=== PATIENT | male | born 1970 | race Caucasian/White ===

== ENCOUNTER 2017-10-26 07:01 | Day surgery (SDC) | payer OTHER ==
[2017-10-17 10:30] VITALS: BMI 26.8
[2017-10-26] MEDS ORDERED: BUPIVACAINE HCL/PF 2.5 MG/ML - 30 ML VIAL IJ ONE (08:08)
[2017-10-26] MEDS ORDERED: EPINEPHrine 1:1,000 1 MG/1 ML - 30ML VIAL (INJECTION) ONE (08:08)
[2017-10-26] MEDS ORDERED: MIDAZOLAM HCL 2 MG/2 ML SINGLE DOSE VIAL ONE (09:01)
[2017-10-26] MEDS ORDERED: PROPOFOL 20 ML ONE ×2 (09:06)
[2017-10-26] MEDS ORDERED: LIDOCAINE HCL/PF 2% SDV 5ML VIAL ONE (09:06)
[2017-10-26] MEDS ORDERED: SUCCINYLCHOLINE CHLORIDE 200 MG/10 ML VIAL ONE (09:08)
[2017-10-26] MEDS ORDERED: BUPIVACAINE HCL/PF 0.25% (2.5MG/ML) 10 ML VIAL IJ ONE (09:49)
[2017-10-26] MEDS ORDERED: oxyCODONE HCL 5 MG TABLET PO PRN (10:11)
[2017-10-26] MEDS ORDERED: PROMETHAZINE HCL 25 MG/1 ML VIAL IVPUSH PRN (10:11)
[2017-10-26] MEDS ORDERED: ONDANSETRON 4 MG/2 ML VIAL IVPUSH PRN (10:11)
[2017-10-26] MEDS ORDERED: LACTATED RINGERS SOLUTION 1,000 ML IV SCH (10:15)
--- NOTE | 2017-10-26 10:40 | OP ---
DATE OF OPERATION: 10/26/2017 POSTOPERATIVE DIAGNOSIS: Left knee medial meniscal tear. POSTOPERATIVE DIAGNOSIS: Left knee medial meniscal tear. PROCEDURE: Left knee arthroscopy with partial medial meniscectomy. SURGEON: Martir Santiago MD ANESTHESIA: General. POSTOPERATIVE CONDITION: Stable. COMPLICATIONS: None. INDICATIONS: This is a pleasant 47-year-old gentleman who had been suffering from medial knee pain. He was found to have meniscus tear on MRI. Treatment options, including nonoperative versus operative management were discussed, and the patient elected for operative care. Operative risks were reviewed in detail including bleeding, infection, neurovascular injury, need for further surgery, postoperative pain and stiffness, progression of osteoarthritis. We discussed medical risks such as heart attack, stroke, DVT, PE, and . I addressed all of the patient's questions. He voiced understanding and wished to proceed. DESCRIPTION OF PROCEDURE: The patient was brought to the operating room where general anesthesia was administered. The left lower extremity was prepped and draped in the usual sterile fashion. A preoperative dose of antibiotics was given, and the usual time-out procedure was performed. At this point, the arthroscopic portals were marked out. An 11 blade was used to make the incision in the lateral portal. The arthroscope was passed into the knee. Examination of the patellofemoral joint demonstrated no significant cartilage wear. Passing the arthroscope down to the notch demonstrated intact ACL and PCL. The arthroscope was now passed medially. A mild portal was established under spinal needle localization. The medial compartment was now visualization. There was a complex tear at the posterior horn extending into the body of the medial meniscus. Utilizing a shaver as well as a meniscal biter, this was debrided down to a stable base. There were minimal wear signs on the femoral and tibia surfaces. The arthroscope was now passed to the lateral compartment. Here, the meniscus and cartilage surfaces were seen to be intact. A probe was passed in the meniscus, which was found to be stable. At this point, the excess fluid was withdrawn from the knee. Portals were sutured using 3-0 nylon. Sterile dressings were placed. The patient was extubated and transferred to the recovery room in stable condition. Mary [id number]/[id number]
[2017-10-26 11:41] VITALS: TEMP 97.6
[2017-10-26 13:32] VITALS: BP 125/80; PULSE 56
== END 2017-10-26 12:10 | disposition home or self-care (01) ==
LOC: FASU 07:01
PROVIDERS: ATTEND Orthopaedic Surgery Sports Medicine
PROC: 0SBD4ZZ Excision of Left Knee Joint, Percutaneous Endoscopic Approach (ICD-10-PCS; principal; 2017-10-26 09:03)
DX: S83.242A Other tear of medial meniscus, current injury, left knee, initial encounter (principal); X58.XXXA Exposure to other specified factors, initial encounter; Y93.9 Activity, unspecified; Y92.9 Unspecified place or not applicable
CPT/HCPCS: 94760